=== PATIENT | male | born 2000 | race Caucasian/White ===

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

== ENCOUNTER 2020-10-30 08:46 | Day surgery (SDC) | payer OTHER, SELFPAY ==
[~2020-10-30] VITALS: Ht 177.8 cm; Wt 136.4 kg
[2020-10-30] MEDS ORDERED: ONDANSETRON 4MG/2ML VIAL IV ONE (09:10)
[2020-10-30] MEDS ORDERED: MORPHINE 4 MG/ML 1ML VIAL/SYRINGE (J2270) IV ONE ×3 (09:10→10:55)
--- NOTE | 2020-10-30 09:43 | REP ---
INDICATION: R proximal fibula TTP. COMPARISON: Right ankle today. TECHNIQUE: Two views FINDINGS: There is a mildly comminuted fracture of the middle 1/3 shaft of the fibula. The distal major fragment is displaced half shaft width anteriorly and slightly angulated anteriorly at the fracture apex. There is also a cortex width lateral displacement on the AP view. The butterfly fragment is not displaced. Few mm of override noted. The proximal fibular head and the tibial shaft were unremarkable. Visualized portions of the knee intact. IMPRESSION: 1. Mildly comminuted fracture of the middle 1/3 shaft of the tibia with the major distal fragment displaced half shaft width anteriorly and a cortex with laterally as well as fracture apex slightly anterior angulation. A few mm of override. No other finding. <Electronically signed by Los Bourgeosi > 10/30/20 0966
--- NOTE | 2020-10-30 09:47 | REP ---
INDICATION: R ankle pain, deformity. COMPARISON: Tibia fibula series this date TECHNIQUE: Standard four views FINDINGS: The ankle mortise is disrupted with the talus subluxed laterally nearly half of its articular surface width, tearing the deltoid ligament. The distal fibula aligns normally with the talus. Significant widening of the medial portion of the mortise joint. I do not see posterior or anterior subluxation on the lateral view. There is irregular ossific density posterior to the talus that suggest a posterior malleolar fracture. Tiny plantar calcaneal spur and spurs the dorsal aspect of the talonavicular joint noted. Subtalar joints intact. IMPRESSION: 1. Posterior malleolar fracture and disruption of the mortise joint with presumed tearing of the deltoid ligament and widening of the medial aspect of the mortise joint. Talar dome is subluxed nearly half of its width laterally widening medial joint space. The distal fibula aligns normally with the lateral margin of the talus. <Electronically signed by Los Bourgeois > 10/30/20 0978
--- OUTSIDE RECORDS SUMMARY | 2020-10-30 10:14 | CCD ---
Author Author [facility] Organization [facility] Address Unknown Phone Unavailable Care Team Providers Care Bank Manager Name Role Phone Jose C Maxwell MD Unavailable Unavailable Jose C Maxwell MD Unavailable Unavailable Jose C Maxwell MD Unavailable Unavailable Jose C Maxwell MD Unavailable Unavailable Jose C Maxwell MD Unavailable Unavailable Jose C Maxwell MD Unavailable Unavailable Jose C Maxwell MD Unavailable Unavailable Jose C Maxwell MD Unavailable Unavailable Jose C Maxwell MD Unavailable Unavailable Jose C Maxwell MD Unavailable Unavailable Jose C Maxwell MD Unavailable Unavailable Jose C Maxwell MD Unavailable Unavailable Jose C Maxwell MD Unavailable Unavailable Jose C Maxwell MD Unavailable Unavailable Jose C Maxwell MD Unavailable Unavailable Jose C Maxwell MD Unavailable Unavailable Jose C Maxwell MD Unavailable Unavailable Jose C Maxwell MD Unavailable Unavailable Jose C Maxwell MD Unavailable Unavailable Jose C Maxwell MD Unavailable Unavailable Jose C Maxwell MD Unavailable Unavailable Jose C Maxwell MD Unavailable Unavailable Jose C Maxwell MD Unavailable Unavailable Jose C Maxwell MD Unavailable Unavailable Jose C Maxwell MD Unavailable Unavailable Louise, [place] ANESTHESIOLOGIST ASSISTANT Unavailable Unavailable Louise, [place] ANESTHESIOLOGIST ASSISTANT Unavailable Unavailable Louise, [place] ANESTHESIOLOGIST ASSISTANT Unavailable Unavailable Louise, [place] ANESTHESIOLOGIST ASSISTANT Unavailable Unavailable Louise, [place] ANESTHESIOLOGIST ASSISTANT Unavailable Unavailable Scordo, M Unique PA Unavailable Unavailable Scordo, M Unique PA Unavailable Unavailable Scordo, M Unique PA Unavailable Unavailable Scordo, M Unique PA Unavailable Unavailable Scordo, M Unique PA Unavailable Unavailable Scordo, M Unique PA Unavailable Unavailable Scordo, M Unique PA Unavailable Unavailable Scordo, M Unique PA Unavailable Unavailable Scordo, M Unique PA Unavailable Unavailable Scordo, M Unique PA Unavailable Unavailable Scordo, M Unique PA Unavailable Unavailable Scordo, M Unique PA Unavailable Unavailable Scordo, M Unique PA Unavailable Unavailable Scordo, M Unique PA Unavailable Unavailable Scordo, M Unique PA Unavailable Unavailable Scordo, M Unique PA Unavailable Unavailable Scordo, M Unique PA Unavailable Unavailable Scordo, M Unique PA Unavailable Unavailable Scordo, M Unique PA Unavailable Unavailable Scordo, M Unique PA Unavailable Unavailable Scordo, M Unique PA Unavailable Unavailable Scordo, M Unique PA Unavailable Unavailable Scordo, M Unique PA Unavailable Unavailable Scordo, M Unique PA Unavailable Unavailable Scordo, M Unique PA Unavailable Unavailable Scordo, M Unique PA Unavailable Unavailable Scordo, M Unique PA Unavailable Unavailable Scordo, M Unique PA Unavailable Unavailable Scordo, M Unique PA Unavailable Unavailable Scordo, M Unique PA Unavailable Unavailable Scordo, M Unique PA Unavailable Unavailable Scordo, M Unique PA Unavailable Unavailable Scordo, M Unique PA Unavailable Unavailable Scordo, M Unique PA Unavailable Unavailable Scordo, M Unique PA Unavailable Unavailable Scordo, M Unique PA Unavailable Unavailable Scordo, M Unique PA Unavailable Unavailable Scordo, M Unique PA Unavailable Unavailable Scordo, M Unique PA Unavailable Unavailable Scordo, M Unique PA Unavailable Unavailable Scordo, M Unique PA Unavailable Unavailable Scordo, M Unique PA Unavailable Unavailable Scordo, M Unique PA Unavailable Unavailable Scordo, M Unique PA Unavailable Unavailable Scordo, M Unique PA Unavailable Unavailable Scordo, M Unique PA Unavailable Unavailable Scordo, M Unique PA Unavailable Unavailable Scordo, M Unique PA Unavailable Unavailable Scordo, M Unique PA Unavailable Unavailable Scordo, M Unique PA Unavailable Unavailable Scordo, M Unique PA Unavailable Unavailable Scordo, M Unique PA Unavailable Unavailable Scordo, M Unique PA Unavailable Unavailable Scordo, M Unique PA Unavailable Unavailable Scordo, M Unique PA Unavailable Unavailable Scordo, M Unique PA Unavailable Unavailable Scordo, M Unique PA Unavailable Unavailable Scordo, M Unique PA Unavailable Unavailable Scordo, M Unique PA Unavailable Unavailable Scordo, M Unique PA Unavailable Unavailable Scordo, M Unique PA Unavailable Unavailable Scordo, M Unique PA Unavailable Unavailable Scordo, M Unique PA Unavailable Unavailable Scordo, M Unique PA Unavailable Unavailable Scordo, M Unique PA Unavailable Unavailable Scordo, M Unique PA Unavailable Unavailable Scordo, M Unique PA Unavailable Unavailable Scordo, M Unique PA Unavailable Unavailable Scordo, M Unique PA Unavailable Unavailable Scordo, M Unique PA Unavailable Unavailable Scordo, M Unique PA Unavailable Unavailable Scordo, M Unique PA Unavailable Unavailable Scordo, M Unique PA Unavailable Unavailable Scordo, M Unique PA Unavailable Unavailable Scordo, M Unique PA Unavailable Unavailable Scordo, M Unique PA Unavailable Unavailable Scordo, M Unique PA Unavailable Unavailable Scordo, M Unique PA Unavailable Unavailable Scordo, M Unique PA Unavailable Unavailable Scordo, M Unique PA Unavailable Unavailable Scordo, M Unique PA Unavailable Unavailable Scordo, M Unique PA Unavailable Unavailable Scordo, M Unique PA Unavailable Unavailable Scordo, M Unique PA Unavailable Unavailable Scordo, M Unique PA Unavailable Unavailable Scordo, M Unique PA Unavailable Unavailable Turo, M Troy RPA-C Unavailable Unavailable Turo, M Troy RPA-C Unavailable Unavailable Turo, M Troy RPA-C Unavailable Unavailable Turo, M Troy RPA-C Unavailable Unavailable Turo, M Troy RPA-C Unavailable Unavailable Turo, M Troy RPA-C Unavailable Unavailable Turo, M Troy RPA-C Unavailable Unavailable Turo, M Troy RPA-C Unavailable Unavailable Turo, Jose C Troy RPA-C Unavailable Unavailable Turo, Jose C Troy RPA-C Unavailable Unavailable Turo, Jose C Troy RPA-C Unavailable Unavailable Turo, Jose C Troy RPA-C Unavailable Unavailable Turo, Jose C Troy RPA-C Unavailable Unavailable Turo, Jose C Troy RPA-C Unavailable Unavailable Turo, Jose C Troy RPA-C Unavailable Unavailable Turo, Jose C Troy RPA-C Unavailable Unavailable Turo, Jose C Troy RPA-C Unavailable Unavailable Turo, Jose C Troy RPA-C Unavailable Unavailable Turo, Jose C Troy RPA-C Unavailable Unavailable Turo, Jose C Troy RPA-C Unavailable Unavailable Turo, Jose C Tobiasa RPA-C Unavailable Unavailable Turo, Jose C Tobiasa RPA-C Unavailable Unavailable Turo, Jose C Tobiasa RPA-C Unavailable Unavailable Turo, Jose C Troy RPA-C Unavailable Unavailable Turo, Jose C Troy RPA-C Unavailable Unavailable Turo, Jose C Tobiasa RPA-C Unavailable Unavailable Turo, Jose C Tobiasa RPA-C Unavailable Unavailable Turo, Jose C Tobiasa RPA-C Unavailable Unavailable Turo, Jose C Troy RPA-C Unavailable Unavailable Feola, T Inna PA Unavailable Unavailable Feola, T Inna PA Unavailable Unavailable Feola, T Inna PA Unavailable Unavailable Feola, T Inna PA Unavailable Unavailable Feola, T Inna PA Unavailable Unavailable Feola, T Inna PA Unavailable Unavailable Feola, T Inna PA Unavailable Unavailable Feola, T Inna PA Unavailable Unavailable Feola, T Inna PA Unavailable Unavailable Feola, T Inna PA Unavailable Unavailable Feola, T Inna PA Unavailable Unavailable Feola, T Inna PA Unavailable Unavailable Feola, T Inna PA Unavailable Unavailable Feola, T Inna PA Unavailable Unavailable Feola, T Inna PA Unavailable Unavailable Feola, T Inna PA Unavailable Unavailable Feola, T Inna PA Unavailable Unavailable Feola, T Inna PA Unavailable Unavailable Feola, T Inna PA Unavailable Unavailable Feola, T Inna PA Unavailable Unavailable Feola, T Inna PA Unavailable Unavailable Feola, T Inna PA Unavailable Unavailable Feola, T Inna PA Unavailable Unavailable Feola, T Inna PA Unavailable Unavailable Feola, T Inna PA Unavailable Unavailable Feola, T Inna PA Unavailable Unavailable Feola, T Inna PA Unavailable Unavailable Feola, T Inna PA Unavailable Unavailable Feola, T Inna PA Unavailable Unavailable Feola, T Inna PA Unavailable Unavailable Feola, T Inna PA Unavailable Unavailable Feola, T Inna PA Unavailable Unavailable Feola, T Inna PA Unavailable Unavailable Feola, T Inna PA Unavailable Unavailable Feola, T Inna PA Unavailable Unavailable Feola, T Inna PA Unavailable Unavailable Feola, T Inna PA Unavailable Unavailable Feola, T Inna PA Unavailable Unavailable Feola, T Inna PA Unavailable Unavailable Re-disclosure Warning The records that you are about to access may contain information from federally-assisted alcohol or drug abuse programs. If such information is present, then the following federally mandated warning applies: This information has been disclosed to you from records protected by federal confidentiality rules (42 CFR part 2). The federal rules prohibit you from making any further disclosure of this information unless further disclosure is expressly permitted by the written consent of the person to whom it pertains or as otherwise permitted by 42 CFR part 2. A general authorization for the release of medical or other information is NOT sufficient for this purpose. The Federal rules restrict any use of the information to criminally investigate or prosecute any alcohol or drug abuse patient.The records that you are about to access may contain highly sensitive health information, the redisclosure of which is protected by Article 27-F of the [facility] Public Health law. If you continue you may have access to information: Regarding HIV / AIDS; Provided by facilities licensed or operated by the [facility] Office of Mental Health; or Provided by the [facility] Office for People With Developmental Disabilities. If such information is present, then the following [facility] mandated warning applies: This information has been disclosed to you from confidential records which are protected by state law. State law prohibits you from making any further disclosure of this information without the specific written consent of the person to whom it pertains, or as otherwise permitted by law. Any unauthorized further disclosure in violation of state law may result in a fine or snf sentence or both. A general authorization for the release of medical or other information is NOT sufficient authorization for further disc losure. Allergies and Adverse Reactions Type Description Substance Reaction Status Data Source(s ) No Known Drug Allergies No Known Drug Allergies [facility] No Known Food Allergies No Known Food Allergies [facility] ENVIRONMENTAL Environmental Allergies Environmental Allergies [facility] Encounters Encounter Providers Location Date Indications Data Source(s ) Outpatient Attender: Inna Wills DANNY 021 10:56:52 AM EST - 09/30/2020 01:00:39 PM EST [facility] ([facility] ) Outpatient Attender: Dimitrios Velasco NPReferrer: Dimitrios Gil FNPConsultant: Agnes Maxwell MD 05/07/2020 01:38:0 0 PM EDT - 05/07/2020 01:48:00 PM EDT [facility] Outpatient Attender: Dimitrios Velasco NPAttender: Troy Ash RPA-CConsultant: Agnes Maxwell MD 05/07/2020 09:12:00 AM EDT - 05/07/2020 09:12:00 AM EDT [facility] Outpatient Attender: Unique Carrillo tender: Troy Ash RPA-CConsultant: Agnes Maxwell MD 10/28/2019 09:40:00 AM EST - 10/28/2019 09:40:00 AM EST [facility] Outpatient Attender: Unique [facility] 10/28 08:45:00 AM EST [facility] ([facility]) Medications Medication Brand Name Start Date Product Form Dose Route Admi nistrative Instructions Pharmacy Instructions Status Indications Reaction Description Data Source(s) Amoxicillin 500 MG Oral Tablet Amoxicillin 10/28/2019 12:00:00 AM EST active [facility] ([facility]) No Active Medications 10/28/2019 12:00:00 AM EST completed [facility] ([facility]) Insurance Providers Payer name Policy type / Coverage type Policy ID Covered libertarian ID Covered libertarian's relationship to ford Policy [employer] Plan Information SELF PAY ONLY [id number] SP [id number] SELF PAY ONLY - SP1 [id number] SP [id number] [facility] Blue [employer] and Blue [employer] - [place] Blue [employer]/B lue Shield [id number] Self [id number] 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 [id number] FFS Self Pay [id number] Self [id number] AETNA -R [id number] AETNA -RECURRING [id number] [employer] [place] [id number] MO2 [id number] [employer] [place] [id number] MO2 [id number] SELF PAY UNAVAILABLE [place] BLE [place] [id number] MO2 [id number] UNAVAILABLE UNAVAILA BLE AETNA-O/P [id number] AETNA-CLINIC [id number] Problems, Conditions, and Diagnoses Code Display Name Description Problem Type Effective Dates Data Source(s) R51 Headache Headache Diagnosis 05/07/2020 09:12:00 AM ED T [facility] R05 Cough Cough Diagnosis 05/07/2020 09:12:00 AM ED T [facility] [id number] Contact with and (suspected) exposure to other viral communicable diseases Contact with and (suspected) exposure to other viral communicable diseases Diagnosis 05/07/2020 09:12:00 AM EDT [facility] [id number] Otitis media, unspecified, left ear Otitis media , unspecified, left ear Diagnosis 10/28/2019 09:40:00 AM EST [facility] Results ID Date Data Source [id number] 09/30/2020 12:00:00 AM EST [facility] Name Value Range Interpretation Code Description Data Marilou rce(s) Supporting Document(s) SARS coronavirus 2 RNA [Presence] in Res piratory specimen by KAY with probe detection NEGATIVE [facility] This lab was ordered by Kirby Gómez and reported by [facility]. ID Date Data Source [id number] 09/30/2020 12:00:00 AM EST [facility] Name Value Range Interpretation Code Description Data Marilou rce(s) Supporting Document(s) Carestart Rapid COVID Antigen Test Negative [facility] This lab was reported by [facility]. ID Date Data Source [id number] 05/07/2020 09:59:00 AM EDT [facility] Name Value Range Interpretation Code Description Data Marilou rce(s) Supporting Document(s) SARS coronavirus 2 RNA [facility] This lab was ordered by [facility] linda and reported by [facility]. ID Date Data Source [id number] 05/08/2020 02:39:00 PM EDT [facility] Name Value Range Interpretation Code Description Data Marilou rce(s) Supporting Document(s) SARS-CoV-2, KAY Not Detected Not Detected [facility] This nucleic acid amplification test was developed and its performancecharacteristics determined by [employer]. Nucleic acidamplification tests include PCR and TMA. This test has not been FDAcleared or approved. This test has been authorized by FDA under anEmergency Use Authorization (EUA). This test is only authorized forthe duration of time the declaration that circumstances existjustifying the authorization of the emergency use of in vitrodiagnostic tests for detection of SARS-CoV-2 virus and/or diagnosisof COVID-19 infection under section 564(b)(1) of the Act, 21 U.S.C.360bbb-3(b) (1), unless the authorization is terminated or revokedsooner.When diagnostic testing is negative, the possibility of a falsenegative result should be considered in the context of a patient'srecent exposures and the presence of clinical signs and symptomsconsistent with COVID- 19. An individual without symptoms of COVID-19and who is not shedding SARS-CoV-2 virus would expect to have anegative (not detected) result in this assay. Procedure Vital Signs ID Date Data Source UNK Name Value Range Interpretation Code Description Data Source(s) Body weight 158.760 kg 158.760 kg [facility] Body weight 350.00 [lb_av] 350.00 [lb_av] [facility] ([facility]) Oxygen saturation in Arterial blood by Pulse oximetry 99 % 99 % [facility] ([facility]) Respiratory rate 18 /min 18 /min [facility] ( [facility]) Body temperature 98.7 [degF] 98.7 [degF] [facility] ([facility]) Heart rate 120 /min 120 /min [facility] ([facility]) Diastolic blood pressure 80 mm[Hg] 80 mm[Hg] [facility] ([facility]) Systolic blood pressure 132 mm[Hg] 132 mm[Hg] [facility])
[2020-10-30] MEDS ORDERED: LIDOCAINE 2% 100MG/5ML SDV (FOR ANES.) As Ordered ONE (10:57)
[2020-10-30] MEDS ORDERED: MIDAZOLAM INJ 2MG/2ML VIAL (J2250 PER 1MG) As Ordered ONE (10:58)
[2020-10-30] MEDS ORDERED: propofoL 200 MG/20 ML VIAL As Ordered ONE (10:58)
[2020-10-30] MEDS ORDERED: fentaNYL 250 MCG/5 ML INJECTION (J3010) As Ordered ONE (10:58)
[2020-10-30 11:11] LABS: INR 0.98; PROTHROMBIN TIME 13.2 SECONDS (12.5-14.3)
[2020-10-30 11:12] LABS: PARTIAL THROMBOPLASTIN TIME 27.2 SECONDS (24.2-38.5)
[2020-10-30 11:20] LABS: BLOOD UREA NITROGEN 10 MG/DL (7-18); CALCIUM LEVEL 8.8 MG/DL (8.5-10.1); CARBON DIOXIDE LEVEL 25 MEQ/L (21-32); CHLORIDE LEVEL 105 MEQ/L (98-107); CREATININE FOR GFR 0.81 MG/DL (0.70-1.30); GLOMERULAR FILTRATION RATE > 60.0 (>60); GLUCOSE, FASTING 92 MG/DL (70-100); POTASSIUM SERUM 3.8 MEQ/L (3.5-5.1); SODIUM LEVEL 139 MEQ/L (136-145)
--- NOTE | 2020-10-30 11:22 | REP ---
INDICATION: attempted reduction. 11:11 a.m. radiographs. COMPARISON: Comparison ankle radiographs October 30, 2020 at 9:18 a.m... TECHNIQUE: Three views are obtained through overlying cast material. FINDINGS: The tibiotalar articulation show some improvement but there is still widening of the medial ankle mortise measuring 16 mm. There is widening of the interval between the distal tibia and distal fibula. There are spurs in the talonavicular and naviculocuneiform articulations. IMPRESSION: Improved alignment. Persistent widening of the medial ankle mortise. <Electronically signed by Manas Centeno > 10/30/20 [id number]
[2020-10-30 11:37] LABS: RSV AMPLIFICATION NEGATIVE (NEGATIVE)
[2020-10-30] MEDS ORDERED: ceFAZolin 1GM VIAL (J0690 PER 500MG) As Ordered ONE ×2 (11:50→12:43)
--- NOTE | 2020-10-30 12:11 | REP ---
INDICATION: R ankle injury, pre-op. COMPARISON: X-ray and ankle and tibia fibula today TECHNIQUE: Axial images soft tissue and bone window settings. Coronal and sagittal reconstructions were provided. FINDINGS: There is posterior malleolar fracture with small bone fragments off the posterior malleolus laterally. There also is an os trigonum seen as a separate finding. On oblique radiograph they superimposed. There are some fragments the inferior aspect of the lateral malleolus which may be old. I do not see a medial malleolar fracture. Degenerative changes of the medial margin of the talus and sustentaculum with old avulsion fragments there. Those are smoothly marginated. Abnormal widening of the medial aspect of the mortise joint and some lateral subluxation of the talus on the tibial plafond by about 10 mm. There is no talar dome osteochondral defect. No acute fracture of the distal fibula at the ankle. There is a fracture of the shaft of the fibula with mild comminution. Anterior and medial displacement of the distal major fragment noted. There is tilt of the talar dome as well as the lateral talar subluxation. There is no anterior-posterior subluxation. No complete dislocation noted. IMPRESSION: 1. Lateral subluxation of a the talus on the tibial plafond by about 10 mm with asymmetric widening of the medial vertical aspect of the mortise joint. There is posterior malleolar of trauma with the small fracture fragments laterally. 2. Presumed old traumatic changes with small of well corticated fragments adjacent to the distal tip of the lateral malleolus and some posttraumatic changes, also suggested to be old about the sustentacular amend medial margin of the talus. They have smooth corticated margins. 3. Mildly comminuted fracture of the middle 1/3 shaft of the fibula with the largest distal fragment displaced medially and anteriorly as seen radiographically. <Electronically signed by Los Bourgeois > 10/30/20 [id number]
[2020-10-30 12:14] LABS: BASO # 0.1 10^3/uL (0.0-0.2); BASO % 0.3 % (0.0-1.0); EOS # 0.1 10^3/uL (0.0-0.5); EOS % 0.8 % (0.0-3.0); HEMATOCRIT 49.6 % (42.0-52.0); HEMOGLOBIN 16.7 g/dl (13.5-17.5); LYMPH # 2.5 10^3/uL (1.5-5.0); LYMPH % 16.8 % (24.0-44.0); MEAN CORPUSCULAR HEMOGLOBIN 28.8 pg (27.0-33.0); MEAN CORPUSCULAR HGB CONC 33.7 g/dl (32.0-36.5); MEAN CORPUSCULAR VOLUME 85.5 fl (80.0-96.0); MONO # 0.9 10^3/uL (0.0-0.8); MONO % 6.4 % (2.0-8.0); NEUTROPHILS # 10.9 10^3/uL (1.5-8.5); NEUTROPHILS % 74.7 % (36.0-66.0); PLATELET COUNT, AUTOMATED 288 10^3/uL (150-450); WHITE BLOOD COUNT 14.6 10^3/uL (4.0-10.0)
[2020-10-30] MEDS ORDERED: ROCURONIUM BROMIDE 50 MG/5 ML VIAL As Ordered ONE (12:41)
[2020-10-30] MEDS ORDERED: ceFAZolin 2 GM/D5W 50 ML IV BAG (J0690 PER 500MG) As Ordered ONE (12:42)
[2020-10-30] MEDS ORDERED: SUCCINYLCHOLINE 100 MG/5 ML SYRINGE (J0330) As Ordered ONE (13:11)
[2020-10-30] MEDS ORDERED: HYDROmorphone HCL 2 MG/ML 1ML VIAL (J1170) As Ordered ONE (13:17)
[2020-10-30] MEDS ORDERED: KETOROLAC 60MG 2ML VIAL As Ordered ONE (13:25)
[2020-10-30] MEDS ORDERED: dexameTHASONE 4 MG/ML 1ML VIAL (J1100 PER 1MG) As Ordered ONE (13:25)
[2020-10-30] MEDS ORDERED: ONDANSETRON 4MG/2ML VIAL As Ordered ONE ×2 (13:25→14:18)
[2020-10-30] MEDS ORDERED: ACETAMINOPHEN 1000MG 100ML IV BTL (OFIRMEV) (J0131 PER 10MG) As Ordered ONE (13:25)
[2020-10-30] MEDS ORDERED: METOCLOPRAMIDE INJ 10MG/2ML VIAL (J2765 PER 1) As Ordered ONE (13:25)
[2020-10-30] MEDS ORDERED: SUGAMMADEX SODIUM 500 MG/5 ML VIAL (BRIDION) As Ordered ONE (13:36)
[2020-10-30] MEDS ORDERED: ALBUTEROL 6.7GM INHALER **FOR ANES. CART/OMNICELL ONLY As Ordered ONE (13:48)
--- NOTE | 2020-10-30 13:56 | REP ---
INDICATION: ORIF RIGHT ANKLE. COMPARISON: Comparison radiographs are from 11:10 a.m.. Same date.. TECHNIQUE: 10 views. 29.0 seconds of fluoroscopy time is reported. FINDINGS: A sequence of 10 last image hold fluoroscopically obtained spot radiographs of the right ankle document open reduction internal fixation with 2 fibula [address]. IMPRESSION: Procedural imaging. <Electronically signed by Manas Centeno > 10/30/20 [id number]
--- NOTE | 2020-10-30 14:17 | CR ---
ORTHOPEDIC CONSULTATION DATE/TIME OF CONSULT: 10/30/20 REASON FOR CONSULTATION: Right ankle injury. 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 He was last evening getting out of a car, he slipped on the ice, twisted his ankle. He did not seek immediate care until this morning. He presents to the hospital in the Emergency Room where he was evaluated by the ER staff and found to have a displaced fracture of the right ankle. Because of that injury I was called to see him. The ER staff had tried to reduce this unsuccessfully with appropriate pain medication. He complains of only isolated soreness to the right ankle. No other injury associated with this present illness. I asked him if he has hurt his ankle before and he says he has had multiple sprains and strains in the past with his right ankle, but has been doing fairly well with it as of late. There is an x-ray from July of 2016 of the right ankle which I reviewed which essentially showed no acute fractures with a large os trigonum posteriorly noted. PAST MEDICAL HISTORY: His past medical history is otherwise unremarkable. PAST SURGICAL HISTORY: 1. Tonsils and adenoids. 2. Tubes in his ears. MEDICATIONS: He is on no active medications. ALLERGIES: No known drug allergies. PHYSICAL EXAMINATION: On examination he is a large framed male lying on a stretcher with a posterior splint in place on his right ankle. He claims quite a discomfort, pain and soreness both medially and laterally about that ankle, but I can palpate a strong dorsalis pedis pulse. He can move his toes well. There is good capillary refill noted and no loss of sensation noted. He had some mild tenderness along the lateral aspect of the right calf, but the compartments were soft. IMAGING: Radiographs were done of the right ankle showing a right ankle lateral dislocation with significant disruption of the syndesmosis. On the lateral view you can see the os trigonum. The radiologist read it as a possible posterior malleolus fracture so we got a CT scan and the CT scan was reviewed by myself. I do not have the report back from the radiologist, but I do not see a significant posterior malleolus fracture. There is a large os trigonum as we noted on his previous x-rays in 2016. There is a mid-shaft to proximal third fibula fracture noted on the tib-fib x-rays. IMPRESSION: This is a fracture dislocation with syndesmosis disruption basically a Maisonneuve type of equivalent fracture dislocation of the right ankle. PLAN: I talked to Christian about this and I think given the unstable nature and it is not very well easily reduced in the Emergency Room that this is best treated with a reduction and fixation in the operating room, but doing so carries the risk of having surgery and that carries the risk of infection, damage to nerve or blood vessels, anesthetic complications amongst others, failure of the bone to heal properly, he may have trouble with his ankle down the road because of the significant injury and he understands that, he signed a consent. We plan to proceed to the operating room as soon as the operating room is available. He has been n.p.o. since last night. [facility] [id number]
--- NOTE | 2020-10-30 14:28 | RO ---
OPERATIVE NOTE DATE OF OPERATION: 10/30/2020 PREOPERATIVE DIAGNOSIS: Fracture dislocation with syndesmosis disruption right ankle. POSTOPERATIVE DIAGNOSIS: Fracture dislocation with syndesmosis disruption right ankle. PROCEDURE: Reduction and syndesmotic fixation with two 4.5 partially-threaded cannulated screws right ankle fracture with syndesmotic disruption. SURGEON: Valeri Castro MD RESIDENTIAL SALES EXECUTIVE: None. ANESTHESIA: General laryngeal mask anesthetic. COMPLICATIONS: None. ESTIMATED BLOOD LOSS: None. TOURNIQUET TIME: None. SPECIMEN: None. DESCRIPTION OF PROCEDURE: He was taken to the operating room and successful general laryngeal mask anesthetic was given. 3 gm Kefzol was given intravenously preoperatively. His right lower extremity was shaved, prepped and draped in the usual sterile fashion and then elevated. After appropriate time out fluoroscopic imaging was provided and closed reduction of his ankle fracture was performed. Under fluoroscopic imaging it appeared to be a good anatomic reduction of the syndesmosis and the mortise was intact. I inspected the fibula fracture proximally under fluoroscopic imaging in AP and lateral planes once the fracture was reduced and you could see clearly that the fracture appeared to be out to length as well as the distal fibula along the lateral talus appeared to be in normal position. Thus, I did feel that the syndesmosis appeared to be reduced and good position on fluoroscopic image. Once I was certain of that I marked the skin parallel to the joint line and then made a small stab incision with a 15-blade, spread with hemostat and then inserted the threaded guide pin from the 4.5 cannulated screw set in parallel fashion across the syndesmosis from the fibular ends of the tibia and checked its position in both AP, mortise and lateral planes and appeared to be good position. Just above this I passed another guide pin parallel to this one under fluoroscopic imaging making a small incision with 15-blade, spreading with hemostat down to the bone of the lateral cortex of the fibula and then introduced threaded guide pin from the 4.5 cannulated screw set across the syndesmosis. Once I was satisfied with the position in AP, lateral and mortise planes I measured and then drilled near cortex on the fibula and then placed 56 mm partially-threaded 4.5 cannulated screw over the proximal wire and then 58 over the distal wire. This reduced the mortise very nicely. I confirmed that the screws were in good position in AP, lateral and mortise planes. I did also confirm that the fibula was well reduced proximally and I did not feel that needed to be opened or addressed surgically. At this point I copiously irrigated out the wounds, closed with nylon sutures. Dry, sterile bulky dressing and Op-Site was applied and then short leg well padded short leg cast was applied. He was awakened from general laryngeal mask anesthetic after having tolerated the procedure well and then transferred to the recovery room in stable condition. There were no intraoperative complications. cc: [facility]
[2020-10-30] MEDS ORDERED: fentaNYL 100 MCG/2 ML INJECTION (J3010) IV PRN (14:30)
[2020-10-30] MEDS ORDERED: ONDANSETRON 4MG/2ML VIAL IV PRN (14:30)
[2020-10-30] MEDS ORDERED: LR 1,000 ML IV SCH (14:30)
[2020-10-30] MEDS ORDERED: METOCLOPRAMIDE INJ 10MG/2ML VIAL (J2765 PER 1) IV PRN (14:30)
[2020-10-30] MEDS ORDERED: PERCOCET 5MG/325MG TAB PO PRN (14:30)
[2020-10-30] MEDS ORDERED: oxyCODONE 5MG TAB As Ordered ONE (15:07)
[2020-10-30] MEDS ORDERED: PERCOCET 5MG/325MG TAB As Ordered ONE (15:09)
[2020-10-30] MEDS ORDERED: MORPHINE 4 MG/ML 1ML VIAL/SYRINGE (J2270) IV PRN (15:30)
[2020-10-30] MEDS ORDERED: NORCO, ANEXSIA 5/325MG TABLET (HYDROcodone/ACETAMINOPHEN) PO PRN ×2 (15:30)
[2020-10-30] MEDS ORDERED: NORCO, ANEXSIA 5/325MG TABLET (HYDROcodone/ACETAMINOPHEN) As Ordered ONE (16:21)
[2020-10-30 16:45] VITALS: BP 143/77
== END 2020-10-30 16:45 | disposition home or self-care (01) ==
LOC: M ED 08:46 → EDBD 08:46 → M SDC 12:20 → M ED 12:42 → M SDC 16:45
PROVIDERS: ATTEND Orthopaedic Surgery
DX: S82.861A Displaced Maisonneuve's fracture of right leg, initial encounter for closed fracture (principal); W00.9XXA Unspecified fall due to ice and snow, initial encounter; Y92.014 Private driveway to single-family (private) house as the place of occurrence of the external cause; Y93.9 Activity, unspecified; Y99.9 Unspecified external cause status; G47.30 Sleep apnea, unspecified; I10 Essential (primary) hypertension; F17.218 Nicotine dependence, cigarettes, with other nicotine-induced disorders; E66.9 Obesity, unspecified; Z91.81 History of falling
CPT/HCPCS: 27829; 73590; 73610; 73700; 76000; 80048; 85025; 85610; 85730; 87631; 96374; 96376; 99284; C1713; J0131; J0330; J0690; J1100; J1170; J1885; J2250; J2270; J2405; J2765; J3010